=== PATIENT | male | born 2000 | race Two or more races ===

== ENCOUNTER 2020-05-31 18:18 | Emergency (ER) | payer MEDICAID ==
[~2020-05-31] VITALS: Ht 175.3 cm; Wt 64.3 kg
[2020-05-31 18:32] VITALS: BP 121/83
== END 2020-05-31 19:32 | disposition home or self-care (01) ==
LOC: ED 19:05
DX: U07.1 COVID-19 (principal); R05 Cough; F17.200 Nicotine dependence, unspecified, uncomplicated
CPT/HCPCS: 36415; 87635; 99283; 99285